=== PATIENT | male | born 1950 | race Caucasian/White ===

== ENCOUNTER 2022-08-08 03:49 | Emergency (ER) | payer MEDICARE ==
--- NOTE | 2022-08-08 04:25 | ED Physician Documentation ---
PD HPI MALE - Stated complaint Stated Complaint: MALE - Chief complaint Chief Complaint: Abd Pain - History obtained from History obtained from: Patient - History of Present Illness Timing - onset: How many hours ago (2) Timing - details: Gradual onset, Constant Pain level now: 9 Associated symptoms: Unable to urinate Similar symptoms before: Has not had sx before Recently seen: Not recently seen - Additional information Additional information: c/o urge to urinate x 2 hours with no urine output, steadily increasing suprapubic fullness and pain. He has had some similar previous episodes associated with long car trips (with concomitant long delays in using bathroom despite urge to), but previous episodes would resolve without needing catheterization. Review of Systems Constitutional: denies: Fever, Chills, Sweats GI: reports: Reviewed and negative : reports: Unable to Void. denies: Dysuria, Frequency PD PAST MEDICAL HISTORY - Past Medical History Past Medical History: Yes Endocrine/Autoimmune: Type 2 diabetes - Present Medications Home Medications: Ambulatory Orders Medication Instructions Recorded Confirmed Spironolactone [Aldactone] 50 mg PO DAILY 08/08/22 08/08/22 metFORMIN [Glucophage] 500 mg PO BID 08/08/22 08/08/22 - Allergies Allergies/Adverse Reactions: Allergies Allergy/AdvReac Type Severity Reaction Status Date / Time doxycycline AdvReac Emesis Verified 08/08/22 04:03 PD ED PE NORMAL - Vitals Vital signs reviewed: Yes - General General: Alert and oriented X 3, Well developed/nourished, Other (obvious painful distress) - Abdomen Abdomen: Soft, Non tender, Other (suprabpubic fullness and tenderness to palpation) - Back Back: No CVA TTP Results - Vitals Vitals: Oxygen O2 Source Room air - Labs Labs: Laboratory Tests 08/08/22 04:20 Urine Color YELLOW Urine Clarity CLEAR Urine pH 6.0 Ur Specific [place] 1.020 Urine Protein NEGATIVE Urine Glucose (UA) 100 H Urine Ketones NEGATIVE Urine Occult Blood MODERATE H Urine Nitrite NEGATIVE Urine Bilirubin NEGATIVE Urine Urobilinogen 0.2 (NORMAL) Ur Leukocyte Esterase NEGATIVE Urine RBC 11-25 H Urine WBC 0-3 Ur Epithelial Cells RARE Transitional Ur Squamous Epith Cells RARE Squamous Urine Bacteria None Seen Urine Casts 3-5 Hyaline Casts Urine Mucus Few Strands Ur Microscopic Review INDICATED Urine Culture Comments NOT INDICATED PD MEDICAL DECISION MAKING - ED course Complexity details: reviewed results, re-evaluated patient, considered differential, d/w patient, d/w family ED course: ED RN places rodríguez catheter without difficulty and there is rapid relief and then resolution of symptoms correlating with large UO into the rodríguez bag. UA result is not s/o infection. Catheter kept in place at d/c, follow up recommendations reviewed as well as return precautions. Patient already takes flomax daily Departure - Departure Disposition: Home, Self Care Clinical Impression: Acute urinary retention Condition: Good Instructions: ED Catheter Care Mihai, ED Retention Urinary Male Comments: You should have the catheter taken out within 5-7 days if possible. If you cannot arrange for follow up in this timeframe, consider going to an urgent care or walk-in clinic by the end of the week. Discharge Date/Time: 08/08/22 05:42
[2022-08-08 04:35] LABS: BILIRUBIN,URINE NEGATIVE (NEGATIVE); GLUCOSE, URINE (UA) 100 mg/dL (NEGATIVE); KETONES,URINE (UA) NEGATIVE (NEGATIVE); LEUKOCYTE ESTERASE, URINE NEGATIVE (NEGATIVE); NITRITE,URINE NEGATIVE (NEGATIVE); OCCULT BLOOD,URINE MODERATE (NEGATIVE); PROTEIN,URINE NEGATIVE (NEGATIVE); UROBILINOGEN,URINE 0.2 (NORMAL) E.U./dL (NORMAL)
[2022-08-08 04:39] LABS: CLARITY,URINE CLEAR (CLEAR)
[2022-08-08 04:42] LABS: BACTERIA,URINE None Seen /HPF (None Seen); CASTS, URINE 3-5 Hyaline Casts /LPF; EPITHELIAL CELLS,UR RARE Transitional /HPF (<= Few); MUCUS,URINE Few Strands; SQUAMOUS EPITHELIAL CELL,UR RARE Squamous (<= Few); WBC,URINE 0-3 /HPF (0-3)
[2022-08-08 05:12] VITALS: BP 130/61
== END 2022-08-08 05:42 | disposition home or self-care (01) ==
LOC: ED 03:49
DX: R33.9 Retention of urine, unspecified (principal)
CPT/HCPCS: 51702; 51798; 81001; 81003; 87086; 99282; 99283

== ENCOUNTER 2022-12-22 09:36 | Outpatient (CLI) | payer MEDICARE ==
[2022-12-22 12:09] LABS: BASOPHILS # (AUTO) 0.1 10^3/uL (0.0-0.1); BASOPHILS % (AUTO) 1.1 %; EOSINOPHILS # (AUTO) 0.7 10^3/uL (0.0-0.7); EOSINOPHILS % (AUTO) 6.9 %; HCT - HEMATOCRIT 46.3 % (42.0-52.0); HGB - HEMOGLOBIN 15.6 g/dL (14.0-18.0); LYMPHOCYTES # (AUTO) 1.9 10^3/uL (1.5-3.5); LYMPHOCYTES % (AUTO) 18.8 %; MEAN CORPUSCULAR HEMOGLOBIN 30.2 pg (27.0-31.0); MEAN CORPUSCULAR HGB CONC 33.7 g/dL (32.0-36.0); MEAN CORPUSCULAR VOLUME 89.6 fL (80.0-94.0); MEAN PLATELET VOLUME 9.9 fL (7.4-11.4); MONOCYTES # (AUTO) 0.8 10^3/uL (0.0-1.0); MONOCYTES % (AUTO) 8.1 %; NEUTROPHILS # (AUTO) 6.5 10^3/uL (1.5-6.6); NEUTROPHILS % (AUTO) 64.9 %; PLT - PLATELET COUNT 285 10^3/uL (130-450); RED BLOOD COUNT 5.17 10^6/uL (4.70-6.10); WHITE BLOOD COUNT 10.1 x10^3/uL (4.8-10.8)
[2022-12-22 12:28] LABS: ALBUMIN 3.9 g/dL (3.2-5.5); ALBUMIN/GLOBULIN RATIO 0.9 (1.0-2.2); ALKALINE PHOSPHATASE 46 IU/L (42-121); ALT ALANINE AMINOTRANSFERASE 19 IU/L (10-60); AST ASPARTATE AMINOTRANSFERASE 18 IU/L (10-42); BILIRUBIN,TOTAL 0.9 mg/dL (0.2-1.0); BUN - BLOOD UREA NITROGEN 23 mg/dL (6-20); CALCIUM 9.7 mg/dL (8.5-10.3); CARBON DIOXIDE - CO2 27 mmol/L (21-32); CHLORIDE 104 mmol/L (101-111); CHOL/HDL RATIO 2.9 (<5.0); CHOLESTEROL 141 mg/dL; CREATININE 1.1 mg/dL (0.6-1.2); GFR - MDRD 65 (>89); GLUCOSE 129 mg/dL (70-100); HDL CHOLESTEROL 49 mg/dL; LDL CHOLESTEROL,CALCULATED 68 mg/dL; LDL/HDL RATIO 1.4 (<3.6); POTASSIUM 4.5 mmol/L (3.5-5.0); SODIUM 139 mmol/L (135-145); TOTAL PROTEIN 8.2 g/dL (6.7-8.2); TRIGLYCERIDES 119 mg/dL; VLDL CHOLESTEROL 24 mg/dL
[2022-12-22 12:46] LABS: CREATININE,URINE 89.5 mg/dL; MICROALBUM/CREATININE RATIO,UR 11.2 ug/mg (<30.0)
[2022-12-22 12:58] LABS: ESTIMATED AVERAGE GLUCOSE 140 mg/dL (70-100); HEMOGLOBIN A1c% 6.5 % (4.27-6.07)
[2022-12-24 13:10] LABS: KAPPA FREE LT CHAINS SERUM 47.7 mg/L (3.3-19.4); KAPPA/LAMBDA RATIO SERUM 2.66 (0.26-1.65); LAMBDA FREE LT CHAINS SERUM 17.9 mg/L (5.7-26.3)
[2022-12-27 15:09] LABS: A/G RATIO 0.9 (0.7-1.7); ALBUMIN 3.6 g/dL (2.9-4.4); ALPHA-1-GLOBULIN 0.3 g/dL (0.0-0.4); BETA GLOBULIN 1.3 g/dL (0.7-1.3); GAMMA GLOBULIN 1.5 g/dL (0.4-1.8); GLOBULIN, TOTAL 4.1 g/dL (2.2-3.9); PROTEIN TOTAL 7.7 g/dL (6.0-8.5)
== END 2022-12-22 09:37 | disposition home or self-care (01) ==
LOC: LAB.N 09:36
PROVIDERS: ATTEND Family Medicine
DX: D47.2 Monoclonal gammopathy (principal); I10 Essential (primary) hypertension; E78.5 Hyperlipidemia, unspecified; E11.9 Type 2 diabetes mellitus without complications; N40.1 Benign prostatic hyperplasia with lower urinary tract symptoms; N13.8 Other obstructive and reflux uropathy
CPT/HCPCS: 36415; 80053; 80061; 81599; 82043; 82570; 83036; 83521; 83721; 84153; 84155; 84156; 84165; 84166; 85025

== ENCOUNTER 2023-01-03 10:07 | Outpatient (CLI) | payer MEDICARE ==
[2023-01-03 12:19] VITALS: BP 124/68
--- NOTE | 2023-01-03 12:19 | SLEEP CARE CONSULTATION ---
Information from patient questionnaire entered by Moon Villagran. I have reviewed and concur with the information entered by Moon Villagran. This document represents the service I personally performed and the decisions made by me, Chen Krause MD, [facility]. History of Present Illness Service Date and Time: 01/03/2023 1007 Reason for Visit: New patient Chief Complaint: reports: Other (REPLACEMENT BIPAP) Usual bedtime: 10PM Time it takes to fall asleep: 10MIN Snores at night: No Observed to quit breathing while asleep: No Number of times waking at night: 1-2 Reasons for waking at night: reports: Bathroom Toss, Turn, or Twitch while sleeping: No Recalls having dreams: No Morning headache: No Sleepy or fatigued during the day: Yes Ever fallen asleep while driving: No Takes day naps: Yes Dreams during day naps: No Prior sleep studies: Yes Additional HPI information: I had the pleasure of seeing Mr. White today regarding obstructive sleep apnea-hypopnea. As you know, he is a 72-year-old gentleman who was diagnosed with the sleep-disordered breathing in [place] 7 years ago. The AHI was 89 and shaunna oxygen saturation, 75%. He was prescribed a BiPAP device set at 16/14 cmH 2O. He uses every night and all night. The compliance data show usage in 30 out of the past 30 nights, averaging 7.7 hours a night. The residual AHI is 3.6 and average air leak is 19 L/minute. He wears a full face mask. He gets his supplies from [facility] in [place]. He finds the treatment very beneficial. He has no complaint. - Parasomnia Symptoms Ever been unable to move upon waking from sleep: No Walks in sleep: No Talks in sleep: No Ever acted out dreams in sleep: No Ever felt weak in the knees when startled or emotional: No Bothered by creepy, crawly, restless sensations in legs: No Problems with memory or concentration: No Subjective Initial Frakes Sleepiness Scale score: 6 (01/02/23) Past Medical History Past Medical History: reports: Hypertension, Diabetes Social History The patient's occupation is a RE. Patient is and lives in . Have you smoked in the past 12 months: No Alcohol use: Yes Alcohol amount and frequency: 1 COCKTAIL 2 X MONTH Caffeine use: Yes Caffeine amount and frequency: 1-2 CUPS DAY Family History Family history of sleep disordered breathing: No Allergies and Home Medications Known drug allergies: Yes (DOXYCYCLINE) Drug allergies reviewed: Yes Home medication list reviewed: Yes Allergy and home medication list: Allergies doxycycline Adverse Reaction (Verified 08/08/22 04:03) Emesis Review of Systems Weight loss over past 5 years: 10-12 Cardiovascular: reports: high blood pressure, leg or foot swelling Respiratory: denies: shortness of breath, wheeze, sputum production, chronic cough, other Gastrointestinal: denies: heartburn, difficulty swallowing, nausea, vomitting, diarrhea, abdominal pain, other Urinary: reports: frequency Neurological: denies: headaches, seizure, head trauma, disorientation, speech dysfunction, gait or balance problems, fainting or unconsciousness, other Ear/Nose/Throat: reports: wisdom teeth removed Endocrine: denies: thyroid disease, history of goiter, sluggishness, too hot or cold, excessive thirst, increased appetite, increased urination, unexplained weakness, other Musculoskeletal: reports: joint pain, back pain Immunologic: denies: sneezing, rash, itching, allergies to food or environment, other Physical Exam Vital signs obtained and entered by: MOON Dsouza MA Blood Pressure: 124/68 (LEFT ARM) Cuff size: long Heart Rate: 47 O2 Saturation: 98 Height: 5 ft 7 in Weight: 265 lb 9.6 oz Body Mass Index: 41.5 BMI Classification: Morbidly Obese Neck circumference: 18.75 Mood/affect: normal HEENT: No craniofacial malformation Nostrils: patent to airflow Turbinates: normal Septum: midline Mouth and throat: narrow oropharynx Soft palate: long Hard palate: normal Uvula: normal Uvula visualization: 25% Mallampati Class III Tongue: normal in size Tonsils: small Chin and jaw: normal size and position Neck: normal w/o lymphadenopathy or thyromegaly Heart: regular rate and rhythm, murmur (systolic) Lungs: clear bilaterally Extremities: 1+ edema Impression and Plan IMPRESSION: 1. Obstructive Sleep Apnea-Hypopnea Syndrome, very severe, as previously diagnosed. Narrow oropharynx and obesity are common predisposing factors for obstructive sleep apnea-hypopnea syndrome. He patient has good treatment compliance. He reports significant improvements on the BiPAP. The current pressure setting appears effective and comfortable. Air leak is a little high and I recommend he try a different full face mask. Because the BiPAP is now older than the useful life of 5 years, I will order the patient a new one and set it at 16/12 cmH2O. Plan: 1. Prescription made for a new BiPAP, heated humidifier, and related supplies through [employer]. 2. Try to lose weight. 3. Return for follow up after one month of using the CPAP. Counseling Topics: Weight control Prescriptions: BiPAP Follow up with Sleep Care in: 1-2 months Visit Type: In Office Time Spent with Patient (minutes): 15 Provider Statement: I spent 100% of the Face to Face Visit with the patient with greater than 50% spent counseling the patient and coordination of care.
== END 2023-01-03 10:08 | disposition home or self-care (01) ==
LOC: SC 10:07
PROVIDERS: ATTEND Internal Medicine Pulmonary Disease
DX: G47.33 Obstructive sleep apnea (adult) (pediatric) (principal); E66.01 Morbid (severe) obesity due to excess calories; Z68.41 Body mass index [BMI] 40.0-44.9, adult
CPT/HCPCS: 99202; G0463; 99212

== ENCOUNTER 2023-07-19 10:07 | Outpatient (CLI) | payer MEDICARE ==
[2023-07-19 13:23] LABS: ALBUMIN/GLOBULIN RATIO 1.1 (1.0-2.2); BILIRUBIN,TOTAL 0.7 mg/dL (0.2-1.0); CALCIUM 9.6 mg/dL (8.5-10.3); CREATININE 1.1 mg/dL (0.6-1.3); POTASSIUM 4.6 mmol/L (3.5-4.5); TOTAL PROTEIN 7.7 g/dL (6.4-8.9)
[2023-07-19 14:09] LABS: ESTIMATED AVERAGE GLUCOSE 137 mg/dL (70-100); HEMOGLOBIN A1c% 6.4 % (4.27-6.07)
[2023-07-19 14:30] LABS: MICROALBUM/CREATININE RATIO,UR 42.6 ug/mg (<30.0)
== END 2023-07-19 10:08 | disposition home or self-care (01) ==
LOC: LAB.N 10:07
PROVIDERS: ATTEND Nurse Practitioner
DX: E11.9 Type 2 diabetes mellitus without complications (principal)
CPT/HCPCS: 36415; 80053; 82043; 82570; 83036

== ENCOUNTER 2024-01-17 10:29 | Outpatient (CLI) | payer MEDICARE ==
[2024-01-17 17:46] LABS: BASOPHILS # (AUTO) 0.1 10^3/uL (0.0-0.1); EOSINOPHILS # (AUTO) 0.5 10^3/uL (0.0-0.7); EOSINOPHILS % (AUTO) 3.9 %; HCT - HEMATOCRIT 50.4 % (42.0-52.0); LYMPHOCYTES # (AUTO) 2.1 10^3/uL (1.5-3.5); LYMPHOCYTES % (AUTO) 17.5 %; MEAN CORPUSCULAR HEMOGLOBIN 29.6 pg (27.0-31.0); MEAN CORPUSCULAR HGB CONC 31.7 g/dL (32.0-36.0); MEAN CORPUSCULAR VOLUME 93.2 fL (80.0-94.0); MEAN PLATELET VOLUME 9.7 fL (7.4-11.4); MONOCYTES # (AUTO) 1.1 10^3/uL (0.0-1.0); MONOCYTES % (AUTO) 9.3 %; NEUTROPHILS # (AUTO) 8.1 10^3/uL (1.5-6.6); NEUTROPHILS % (AUTO) 68.1 %; PLT - PLATELET COUNT 314 10^3/uL (130-450); RED BLOOD COUNT 5.41 10^6/uL (4.70-6.10); RED CELL DISTRIBUTION WIDTH 13.9 % (12.0-15.0); WHITE BLOOD COUNT 11.9 x10^3/uL (4.8-10.8)
[2024-01-17 18:07] LABS: CREATININE,URINE 255.1 mg/dL; MICROALBUMIN,URINE 7.9 mg/dL
[2024-01-17 18:10] LABS: ALBUMIN/GLOBULIN RATIO 1.1 (1.0-2.2); ALKALINE PHOSPHATASE 51 IU/L (42-121); ALT ALANINE AMINOTRANSFERASE 25 IU/L (10-60); AST ASPARTATE AMINOTRANSFERASE 15 IU/L (10-42); BILIRUBIN,TOTAL 0.9 mg/dL (0.2-1.0); BUN - BLOOD UREA NITROGEN 23 mg/dL (6-20); CALCIUM 10.5 mg/dL (8.5-10.3); CARBON DIOXIDE - CO2 28 mmol/L (21-32); CHLORIDE 103 mmol/L (101-111); CHOL/HDL RATIO 3.1 (<5.0); CHOLESTEROL 128 mg/dL; CREATININE 1.3 mg/dL (0.6-1.3); GFR - MDRD 54 (>89); GLUCOSE 129 mg/dL (74-104); HDL CHOLESTEROL 41 mg/dL; LDL CHOLESTEROL,CALCULATED 54 mg/dL; LDL/HDL RATIO 1.3 (<3.6); POTASSIUM 4.6 mmol/L (3.5-4.5); SODIUM 138 mmol/L (135-145); TOTAL PROTEIN 7.5 g/dL (6.4-8.9); TRIGLYCERIDES 163 mg/dL (48-352); VLDL CHOLESTEROL 33 mg/dL
[2024-01-17 20:54] LABS: ESTIMATED AVERAGE GLUCOSE 146 mg/dL (70-100); HEMOGLOBIN A1c% 6.7 % (4.27-6.07)
== END 2024-01-17 10:30 | disposition home or self-care (01) ==
LOC: LAB.N 10:29
PROVIDERS: ATTEND Nurse Practitioner
DX: E78.5 Hyperlipidemia, unspecified (principal); E11.9 Type 2 diabetes mellitus without complications
CPT/HCPCS: 36415; 80053; 80061; 82043; 82570; 83036; 83721; 85025

== ENCOUNTER 2024-02-21 10:35 | Outpatient (CLI) | payer MEDICARE ==
--- NOTE | 2024-02-21 11:40 | XRAY Report ---
Lumbar Spine 2-3V HISTORY: 73 years of age, LOW BACK PAIN TECHNIQUE: Lumbar Spine 2-3V COMPARISON: None. FINDINGS/IMPRESSION: Moderate levoscoliosis of the lumbar spine centered at L1-2. Mild retrolisthesis of L1-L2, L2-L3, and L4 on L5. Mild anterior compression deformity of T12 and L1, favoring chronic. Multilevel, severe de generative disc disease of the lumbar spine. Moderate lower lumbar facet arthropathy. Severe atherosclerotic calcification of the abdominal aorta. Reviewed by: Vale Kat MD on 02/21/2024 11:38 AM PDT Approved by: Vale Kat MD on 02/21/2024 11:38 AM PDT Station ID: [id number]
== END 2024-02-21 10:36 | disposition home or self-care (01) ==
LOC: DI.N 10:35
PROVIDERS: ATTEND Nurse Practitioner
DX: M51.36 Other intervertebral disc degeneration, lumbar region (principal); M47.816 Spondylosis without myelopathy or radiculopathy, lumbar region; M43.16 Spondylolisthesis, lumbar region; M41.9 Scoliosis, unspecified; I70.0 Atherosclerosis of aorta; M43.8X5 Other specified deforming dorsopathies, thoracolumbar region

== ENCOUNTER 2024-03-06 13:55 | Outpatient (CLI) | payer MEDICARE ==
--- NOTE | 2024-03-06 16:30 | MRI Report ---
PROCEDURE: Lumbar Spine WO INDICATIONS: LOW BACK PAIN TECHNIQUE: Noncontrast sagittal T1 spin echo and T2 fast echo, sagittal STIR, axial T1 and T2 fast spin echo thr ough the lumbar spine. In cases with scoliosis, additional coronal T2 fast spin echo may be performe d. COMPARISON: Lumbar spine x-ray 02/21/2024. FINDINGS: Image quality: Excellent. Alignment and Curvature: Straightening of the normal lumbar lordosis. Bone Marrow: Multilevel Modic type II degenerative endplate changes, most severe at L2-L3 and L3-L4. Marrow is of normal overall signal. Mild anterior wedging of T12 and L1 which is chronic. No acute v ertebral body compression fractures. Spinal Cord: Conus medullaris terminates at the L1 level. Visualized cord demonstrates normal signa l and size. Paraspinous Soft Tissues: No paravertebral masses. T12-L1: Disc desiccation and height loss. Mild disc bulge. Facet arthropathy. No significant central canal stenosis. Mild bilateral neural foraminal stenosis. L1-L2: Disc desiccation and height loss. Diffuse disc bulge asymmetric to the right with small sup erimposed central disc protrusion. Mild central canal stenosis. Facet arthropathy and thickening of l igamenta flava. Moderate right and mild to moderate left neural foraminal stenosis. L2-L3: Disc desiccation, height loss and a posterior disc bulge. Facet arthropathy. Posterior fani lar tear. Prominent epidural fat. Moderate to severe central canal stenosis. Moderate right and mild left neural foraminal stenosis. L3-L4: Severe disc desiccation and height loss. Facet arthropathy. Epidural lipomatosis. Moderate t o severe central canal stenosis. Severe right and moderate left neural foraminal stenosis. L4-L5: Disc desiccation, height loss and a posterior disc bulge. Facet arthropathy and thickening o f ligamentum flavum. Mild epidural lipomatosis. Mild central canal stenosis. Severe left and mild rig ht neural foraminal stenosis. L5-S1: Disc desiccation, height loss and a posterior disc bulge. Facet arthropathy and thickening o f ligamentum flavum. No central canal stenosis. Mild bilateral neural foraminal stenosis. IMPRESSION: 1.Multilevel degenerative changes of the lumbar spine as described above. 2.There is moderate to severe central canal stenosis at L2-L3 and L3-L4. 3.Severe neural foraminal stenosis on the right at L3-L4 and left L4-L5. Multilevel mild and moderate neural foraminal stenosis as described above. Reviewed by: Chaitanya Doll MD on 03/06/2024 3:28 PM [facility] Approved by: Chaitanya Doll MD on 03/06/2024 3:28 PM [facility] Station ID: [id number]
== END 2024-03-06 13:56 | disposition home or self-care (01) ==
LOC: DI 13:55
PROVIDERS: ATTEND Nurse Practitioner
DX: M48.061 Spinal stenosis, lumbar region without neurogenic claudication (principal); M51.37 Other intervertebral disc degeneration, lumbosacral region; M48.07 Spinal stenosis, lumbosacral region; M51.36 Other intervertebral disc degeneration, lumbar region; M47.816 Spondylosis without myelopathy or radiculopathy, lumbar region

== ENCOUNTER 2024-07-01 08:41 | Outpatient (CLI) | payer MEDICARE ==
--- NOTE | 2024-07-02 05:28 | Ultrasound Report ---
PROCEDURE: Aorta Duplex Complete INDICATIONS: CALCIFIC AORTIC STENOSIS TECHNIQUE: Ferguson scale and color Doppler images of the abdominal aorta and iliac arteries were obtaine d. Duplex velocity measurements were acquired at various intervals. COMPARISON: MRI lumbar spine without contrast 03/06/2024 FINDINGS: The proximal, mid, and distal portions of the abdominal aorta measure 2.5 cm, 1.9 cm, and 1.7 cm resp ectively. The right common iliac artery measures 1.5 cm in diameter. The left common iliac artery measures 1.3 cm in diameter. AORTA: Proximal peak systolic velocity: 53 cm/s, monophasic waveform Mid peak systolic velocity: 89 cm/s, monophasic waveform Distal peak systolic velocity: 56 cm/s, biphasic waveform Right iliac vasculature: Common iliac artery peak systolic velocity: 65 cm/s, monophasic waveform External iliac artery proximal peak systolic velocity: 126 cm/s, triphasic waveform External iliac artery distal peak systolic velocity: 159 cm/s, triphasic waveform Common femoral artery proximal peak systolic velocity: 78 cm/s, triphasic waveform Left iliac vasculature: Common iliac artery peak systolic velocity: 89 cm/s, triphasic waveform External iliac artery proximal peak systolic velocity: 65 cm/s, triphasic waveform External iliac artery distal peak systolic velocity: 71 cm/s, biphasic waveform Common femoral artery proximal peak systolic velocity: 81 cm/s, biphasic waveform Please note that the bilateral distal common iliac artery segments are not visualized. IMPRESSION: 1.No abdominal aortic or common iliac arterial aneurysm. 2.No severe abdominal arterial stenosis. 3.Mild stenosis of the right external iliac artery. Reviewed by: Michael Mabry MD on 07/02/2024 5:26 AM PDT Approved by: Michael Mabry MD on 07/02/2024 5:26 AM PDT Station ID: [id number]
== END 2024-07-01 08:42 | disposition home or self-care (01) ==
LOC: DI 08:41
PROVIDERS: ATTEND Nurse Practitioner
DX: I70.8 Atherosclerosis of other arteries (principal)
CPT/HCPCS: 93978